=== PATIENT | female | born 1945 | race Caucasian/White ===

== ENCOUNTER 2017-04-02 11:45 | Inpatient (IN) | payer MEDICARE, BC ==
[2017-04-02] MEDS ORDERED: DEXTROSE 50% 25 GM / 50ML DISP.SYRIN. IV ×2 (11:51→22:45)
[2017-04-02] MEDS: DEXTROSE 50% 25 GM / 50ML DISP.SYRIN. IV ×4 (11:52→22:45)
[2017-04-02 12:36] LABS: ADD MAN DIFF? NO
[2017-04-02 12:41] LABS: EOS % 2 % (0-3); HEMOGLOBIN 13.6 g/dL (12.0-15.5); LYMPH % 24 % (24-48); MEAN CORPUSCULAR HEMOGLOBIN 30 pg (25-35); MEAN CORPUSCULAR HGB CONC 33 g/dL (31-37); MEAN CORPUSCULAR VOLUME 90 fL (79-100); MONO % 11 % (0-9); NEUT % 63 % (31-73); PLATELET COUNT 173 x10^3/uL (140-400); RED BLOOD COUNT 4.58 x10^6/uL (3.50-5.40); WHITE BLOOD COUNT 7.9 x10^3/uL (4.0-11.0)
[2017-04-02 12:42] LABS: BASO % 0 % (0-3); EOS # 0.1 x10^3/uL (0.0-0.7); LYMPH # 1.9 x10^3/uL (1.0-4.8); MONO # 0.9 x10^3/uL (0.0-1.1)
[2017-04-02] MEDS: IV NORMAL SALINE 1000ML BAG 1,000 ML IV (12:50)
[2017-04-02 12:51] LABS: PARTIAL THROMBOPLASTIN TIME 28 SEC (24-38); PROTHROMBIN TIME PATIENT 12.3 SEC (11.7-14.0)
[2017-04-02] MEDS: ONDANSETRON PF 4 MG/2 ML VIAL. IV (12:52)
[2017-04-02] MEDS: fentaNYL PF VIAL 100 MCG/2 ML VIAL IV ×2 (12:52→13:59)
[2017-04-02 13:01] LABS: POC GLUCOSE 90 mg/dL (70-99)
[2017-04-02 13:01] LABS: ETHANOL < 10 mg/dL (0-10)
[2017-04-02 13:04] LABS: ALBUMIN/GLOBULIN RATIO 1.1 (1.0-1.7); ALK PHOS 54 U/L (46-116); ALT (SGPT) 21 U/L (14-59); ANION GAP 9 (6-14); AST (SGOT) 20 U/L (15-37); BLOOD UREA NITROGEN 23 mg/dL (7-20); BUN/CREATININE RATIO 33 (6-20); CALCIUM 9.3 mg/dL (8.5-10.1); CARBON DIOXIDE 28 mmol/L (21-32); CHLORIDE 103 mmol/L (98-107); CREATINE KINASE 162 U/L (26-192); CREATININE 0.7 mg/dL (0.6-1.0); GFR 82.5; GLUCOSE 44 mg/dL (70-99); LIPASE 244 U/L (73-393); POTASSIUM 3.5 mmol/L (3.5-5.1); SODIUM 140 mmol/L (136-145); TOTAL BILIRUBIN 0.4 mg/dL (0.2-1.0); TOTAL PROTEIN 7.5 g/dL (6.4-8.2)
[2017-04-02 13:09] LABS: NT-PRO BNP 90 pg/mL (0-124)
[2017-04-02 13:10] LABS: TROPONINI < 0.017 ng/mL (0.000-0.055)
[2017-04-02 13:11] LABS: THYROID STIM HORMONE (TSH) 0.936 uIU/mL (0.358-3.74)
[2017-04-02 13:25] LABS: LACTIC ACID 1.5 mmol/L (0.4-2.0)
[2017-04-02 13:56] LABS: POC GLUCOSE 36 mg/dL (70-99)
[2017-04-02] MEDS: diazePAM 5 MG TABLET PO (13:59)
[2017-04-02] MEDS: ASPIRIN CHEWABLE 81 MG TABLET. PO (13:59)
[2017-04-02] MEDS ORDERED: ONDANSETRON PF 4 MG/2 ML VIAL. IV (14:00)
[2017-04-02 14:02] LABS: POC GLUCOSE 91 mg/dL (70-99)
[2017-04-02 14:24] LABS: BARBITURATES NEG (NEG); BENZODIAZEPINES NEG (NEG); CANNABINOIDS NEG (NEG); COCAINE NEG (NEG); METHADONE NEG (NEG); OPIATES NEG (NEG); PHENCYCLIDINE NEG (NEG)
[2017-04-02 14:27] LABS: AMPHETAMINE/METHAMPHETAMINE NEG (NEG); ETHANOL, URINE NEG (NEG); INFLUENZA A PATIENT NEGATIVE (NEGATIVE); INFLUENZA B PATIENT NEGATIVE (NEGATIVE); OBC FLU VALID
[2017-04-02 14:28] LABS: BILIRUBIN,URINE NEGATIVE (NEG); CLARITY,URINE CLEAR; COLOR,URINE YELLOW; GLUCOSE,URINE 250 mg/dL (NEG); NITRITE,URINE NEGATIVE (NEG); PROTEIN,URINE NEGATIVE (NEG-TRACE)
[2017-04-02 14:39] LABS: BACTERIA,URINE 0 /HPF (0-FEW); RBC,URINE RARE /HPF (0-2); SQUAMOUS EPITHELIAL CELL,UR OCC /LPF; WBC,URINE 0 /HPF (0-4)
[2017-04-02 17:21] LABS: POC GLUCOSE 58 mg/dL (70-99)
[2017-04-02] MEDS: IV DEXTROSE 5 %-0.45 % NACL 1,000 ML IV (17:30)
[2017-04-02 20:54] LABS: POC GLUCOSE 58 mg/dL (70-99)
[2017-04-02 21:23] LABS: POC GLUCOSE 87 mg/dL (70-99)
[2017-04-02 22:15] LABS: POC GLUCOSE 45 mg/dL (70-99)
[2017-04-02 22:16] LABS: POC GLUCOSE 76 mg/dL (70-99)
[2017-04-02 22:16] LABS: POC GLUCOSE 111 mg/dL (70-99)
[2017-04-02 23:07] LABS: POC GLUCOSE 43 mg/dL (70-99)
[2017-04-02 23:07] LABS: POC GLUCOSE 161 mg/dL (70-99)
[2017-04-03] MEDS: DEXTROSE 50% 25 GM / 50ML DISP.SYRIN. IV ×3 (00:36→06:10)
[2017-04-03 00:40] LABS: POC GLUCOSE 65 mg/dL (70-99)
[2017-04-03 02:44] LABS: POC GLUCOSE 92 mg/dL (70-99)
[2017-04-03 04:23] LABS: ADD MAN DIFF? NO
[2017-04-03 04:31] LABS: POC GLUCOSE 65 mg/dL (70-99)
[2017-04-03 04:31] LABS: POC GLUCOSE 59 mg/dL (70-99)
[2017-04-03 04:31] LABS: POC GLUCOSE 93 mg/dL (70-99)
[2017-04-03 04:53] LABS: BASO % 0 % (0-3); EOS # 0.3 x10^3/uL (0.0-0.7); EOS % 4 % (0-3); HEMATOCRIT 33.5 % (36.0-47.0); HEMOGLOBIN 11.4 g/dL (12.0-15.5); LYMPH % 34 % (24-48); MEAN CORPUSCULAR HEMOGLOBIN 30 pg (25-35); MEAN CORPUSCULAR HGB CONC 34 g/dL (31-37); MEAN CORPUSCULAR VOLUME 89 fL (79-100); MONO # 0.7 x10^3/uL (0.0-1.1); MONO % 11 % (0-9); NEUT % 50 % (31-73); PLATELET COUNT 132 x10^3/uL (140-400); RED BLOOD COUNT 3.76 x10^6/uL (3.50-5.40); RED CELL DISTRIBUTION WIDTH 13.2 % (11.5-14.5)
[2017-04-03 05:10] LABS: POC GLUCOSE 98 mg/dL (70-99)
[2017-04-03 05:10] LABS: ANION GAP 7 (6-14); BLOOD UREA NITROGEN 19 mg/dL (7-20); CARBON DIOXIDE 27 mmol/L (21-32); CHLORIDE 104 mmol/L (98-107); CREATININE 0.8 mg/dL (0.6-1.0); GFR 70.7; GLUCOSE 77 mg/dL (70-99); POTASSIUM 3.8 mmol/L (3.5-5.1); SODIUM 138 mmol/L (136-145)
[2017-04-03 05:16] LABS: CALCIUM 8.6 mg/dL (8.5-10.1)
[2017-04-03 06:45] LABS: POC GLUCOSE 110 mg/dL (70-99)
[2017-04-03 07:49] LABS: POC GLUCOSE 81 mg/dL (70-99)
[2017-04-03] MEDS ORDERED: ALBUTEROL SULFATE 2.5 MG/3 ML NEBU. NEB (08:30)
[2017-04-03] MEDS ORDERED: CONTRAST GIVEN MC (08:45)
[2017-04-03 08:50] LABS: POC GLUCOSE 77 mg/dL (70-99)
[2017-04-03] MEDS: IOHEXOL 300 MG/ML 100ML VIAL. IV (08:50)
[2017-04-03] MEDS: hydroCHLOROthiazide 25 MG TABLET PO (10:05)
[2017-04-03] MEDS: LISINOPRIL 20 MG TABLET PO (10:05)
[2017-04-03] MEDS: IV DEXTROSE 5 %-0.45 % NACL 1,000 ML IV (10:08)
[2017-04-03 11:08] LABS: POC GLUCOSE 87 mg/dL (70-99)
[2017-04-03] MEDS ORDERED: NON FORMULARY ITEM (Albuterol Sulfate (Ventolin Hfa Inhaler) 2 PUFF) INH (12:00)
[2017-04-03 16:15] LABS: INSULIN LEVEL 17.7 uIU/mL (2.6-24.9)
[2017-04-03 17:01] LABS: POC GLUCOSE 105 mg/dL (70-99)
[2017-04-03] MEDS: BUDESONIDE 0.5 MG/2 ML NEBU. NEB (19:43)
[2017-04-03 20:17] LABS: POC GLUCOSE 117 mg/dL (70-99)
[2017-04-03] MEDS: ATORVASTATIN CALCIUM 10 MG TABLET. PO (20:45)
[2017-04-04 05:21] LABS: POC GLUCOSE 52 mg/dL (70-99)
[2017-04-04] MEDS: BUDESONIDE 0.5 MG/2 ML NEBU. NEB ×2 (07:40→20:24)
[2017-04-04 08:10] LABS: POC GLUCOSE 99 mg/dL (70-99)
[2017-04-04] MEDS: LISINOPRIL 20 MG TABLET PO ×2 (08:29→16:42)
[2017-04-04] MEDS: hydroCHLOROthiazide 25 MG TABLET PO ×2 (08:30→16:41)
[2017-04-04] MEDS: ACETAMINOPHEN 325 MG TABLET. PO (08:31)
[2017-04-04] MEDS: IV DEXTROSE 5 %-0.45 % NACL 1,000 ML IV (08:35)
[2017-04-04 10:58] LABS: POC GLUCOSE 114 mg/dL (70-99)
[2017-04-04 16:50] LABS: POC GLUCOSE 98 mg/dL (70-99)
[2017-04-04] MEDS ORDERED: DEXTROSE ORAL GEL 15 GM TUBE. PO (17:00)
[2017-04-04 21:00] LABS: POC GLUCOSE 124 mg/dL (70-99)
[2017-04-04] MEDS: LACTOBACILLUS RHAMNOSUS GG 1 CAPSULE. PO (21:19)
[2017-04-04] MEDS: ATORVASTATIN CALCIUM 10 MG TABLET. PO (21:19)
[2017-04-04] MEDS: AMOXICILLIN/K CLAV 875/125MG TABLET. PO (21:19)
[2017-04-05 04:58] LABS: HEMATOCRIT 34.7 % (36.0-47.0); HEMOGLOBIN 11.7 g/dL (12.0-15.5); MEAN CORPUSCULAR HEMOGLOBIN 30 pg (25-35); MEAN CORPUSCULAR HGB CONC 34 g/dL (31-37); MEAN CORPUSCULAR VOLUME 89 fL (79-100); PLATELET COUNT 131 x10^3/uL (140-400); RED BLOOD COUNT 3.88 x10^6/uL (3.50-5.40); RED CELL DISTRIBUTION WIDTH 13.3 % (11.5-14.5); WHITE BLOOD COUNT 5.5 x10^3/uL (4.0-11.0)
[2017-04-05 05:49] LABS: ANION GAP 9 (6-14); BLOOD UREA NITROGEN 22 mg/dL (7-20); CALCIUM 9.2 mg/dL (8.5-10.1); CARBON DIOXIDE 29 mmol/L (21-32); CHLORIDE 104 mmol/L (98-107); CREATININE 0.9 mg/dL (0.6-1.0); GFR 61.7; GLUCOSE 108 mg/dL (70-99); SODIUM 142 mmol/L (136-145)
[2017-04-05 07:40] LABS: POC GLUCOSE 121 mg/dL (70-99)
[2017-04-05] MEDS: AMOXICILLIN/K CLAV 875/125MG TABLET. PO (07:48)
[2017-04-05] MEDS: hydroCHLOROthiazide 25 MG TABLET PO (07:48)
[2017-04-05] MEDS: LACTOBACILLUS RHAMNOSUS GG 1 CAPSULE. PO (07:48)
[2017-04-05] MEDS: LISINOPRIL 20 MG TABLET PO (07:49)
[2017-04-05] MEDS: BUDESONIDE 0.5 MG/2 ML NEBU. NEB (07:56)
== END 2017-04-05 17:00 | disposition home or self-care (01) | DRG 640 ==
LOC: 6 SOUTH 04-03 17:38 → ER 11:45 → 6 SOUTH 13:39
PROVIDERS: Family Medicine
DX: E16.2 Hypoglycemia, unspecified (principal); G93.41 Metabolic encephalopathy; H70.90 Unspecified mastoiditis, unspecified ear; J44.9 Chronic obstructive pulmonary disease, unspecified; E66.9 Obesity, unspecified; Z68.28 Body mass index [BMI] 28.0-28.9, adult; E78.5 Hyperlipidemia, unspecified; I10 Essential (primary) hypertension; Z80.0 Family history of malignant neoplasm of digestive organs; Z87.891 Personal history of nicotine dependence; Z88.5 Allergy status to narcotic agent; Z90.49 Acquired absence of other specified parts of digestive tract; Z82.49 Family history of ischemic heart disease and other diseases of the circulatory system; Z71.89 Other specified counseling
CPT/HCPCS: 36415; 70450; 70551; 71045; 72125; 74160; 80048; 80053; 80307; 81001; 82550; 82962; 83525; 83605; 83690; 83735; 83880; 84443; 84484; 85025; 85027; 85610; 85730; 87040; 87804; 87804-59; 93005; 93306; 94640; 94760; 96361; 96374; 96375; 99285; 99285-25; G0480; J2405; J3010; J7030; J7042; J7626; Q9967

== ENCOUNTER → 2019-02-24 | Outpatient (CLI) | payer MEDICARE, OTHER ==
[2017-04-05 14:40] VITALS: BP 119/71
[~2019-02-24] MED LIST: ALBU2.5V8 INH; AMOX1TAB11 PO; FLUT100D IH; IPRA0.2S5 IH; LISI-334 PO; LISI1TAB20 PO; LOVA20TA2 PO; VENTOLIN HFA18 GM INH
--- NOTE | 2019-02-24 13:28 | KCIC ---
EXAM: Dual energy x-ray absorptiometry (DEXA). HISTORY: Postmenopausal female presents for osteoporosis screening. COMPARISON: None. TECHNIQUE: Dual energy x-ray absorptiometry of the lumbar spine and left hip was performed. Calculation of bone mineral density based on standard deviations above or below the expected young adult normal value (T-score) was completed. FINDINGS: The average bone mineral density in the 1st through 4th lumbar vertebrae is 1.184 g/cmxcm, corresponding with a T-score of 1.2. The average total bone mineral density in the left hip is 0.748 g/cmxcm, corresponding with a T-score of -1.6. IMPRESSION: 1. Osteopenia measured at the left hip. 2. Normal bone mineral density measured at the lumbar spine. Note: Definitions established by the World Health Organization: 1. Normal: T-score is -1.0 or above. 2. Osteopenia: T-score is between -1.0 and -2.5 . 3. Osteoporosis: T-score is -2.5 or below. Electronically signed by: Sissy Paris MD (02/24/2019 1:25 PM) [place] [id number]
--- NOTE | 2019-03-03 16:42 | KCIC ---
BILATERAL SCREENING MAMMOGRAM, 3-D History: Routine screening. Comparison: Bilateral mammogram June 09, 2016. Technique: MLO and CC digital tomosynthesis (3D) images obtained. Radiologist reviewed these images on dedicated workstation. Findings: Breast Tissue Density A : The breasts are almost entirely fatty. A few benign calcifications are noted. There are no dominant masses, suspicious microcalcifications, or architectural distortion. IMPRESSION: No mammographic evidence of malignancy. Recommend routine screening. BI-RADS category 2: Benign findings. The images were reviewed with computer-aided detection. Patient information is entered into reminder system with a target due date for the next screening mammogram. Mammography is the most sensitive method for finding small breast cancers, but it does not detect them all and is not a substitute for careful clinical examination. A negative mammogram does not negate a clinically suspicious finding and should not result in delay in biopsying a clinically suspicious abnormality. "Our facility is accredited by the [employer] Mammography Program." Electronically signed by: Arnaldo Cassidy MD (03/03/2019 4:39 PM) [id number]
== END | disposition home or self-care (01) ==
LOC: KCIC DEXA 08:36
PROVIDERS: ATTEND Family Medicine
DX: Z12.31 Encounter for screening mammogram for malignant neoplasm of breast (principal); N64.89 Other specified disorders of breast; M85.88 Other specified disorders of bone density and structure, other site; Z78.0 Asymptomatic menopausal state
CPT/HCPCS: 77063; 77067; 77080